=== PATIENT | female | born 1970 | race Caucasian/White ===

== ENCOUNTER 2021-03-22 17:14 | Inpatient (IN) | payer OTHER ==
[~2021-03-22] VITALS: Ht 177.8 cm; Wt 81.6 kg
[~2021-03-22 17:14] MED LIST: HCTZ OR; HYDROCODON-ACE1 EAC5 OR; LISINOPRIL20 MG OR
[2021-03-22 18:30] VITALS: BP 128/70
[2021-03-22 23:16] VITALS: BP 129/56
[2021-03-23] VITALS (13 sets, daily range): BP systolic 93–122; BP diastolic 52–65
--- NOTE | 2021-03-23 04:20 | NUR ---
ASSUMED PT CARE THIS PM. PT IS ALERT AND ORIENTED X4. PT HAD A TEMP WHICH WAS MANAGED BY TYLENOL. PT DID NOT C/O OF N/V OR PAIN. HOME MEDS WERE TAKEN TO PHARMACY. MEDS WERE GIVEN PER EMAR ORDERS. PT INFORMED ABOUT NPO ORDERS AND PT VERBALIZED UNDERSTANDING. PT DID NOT VERBALIZE ANY CONCERNS. FALL PRECAUTIONS IN PLACE. WILL CONTINUE TO MONITOR.
[2021-03-23 05:42] LABS: HEMATOCRIT 34.3 % (37.0-47.0); HEMOGLOBIN 11.8 gm/dL (12.0-15.0); MCH 28.8 pg (26.0-34.0); MCHC 34.5 g/dL (28.0-37.0); MCV 83.3 fL (80.0-100.0); RBC 4.12 mil/uL (4.20-5.00); RDW 13.8 % (10.5-14.5); WBC 13.7 thou/uL (4.0-11.0)
[2021-03-23 05:59] LABS: CALCIUM 7.4 mg/dL (8.5-10.1); CREATININE 1.3 mg/dL (0.6-1.0); POTASSIUM 3.2 mmol/L (3.5-5.1)
--- NOTE | 2021-03-23 10:39 | NUR ---
Chart review. Dx kidney stone, uti. Going to have stone removed possible today. Discussed during los with hospitalist. Noted she lives at home with spouse. No anticipated needs at discharge, will cont following as needed for dc needs.
--- NOTE | 2021-03-23 15:40 | NUR ---
Pt A & O x4. Pt VS stable. Pt had stent placed this shift. Pt received medications as ordered. Pt also received PRN medications as requested by pt. Pt is independent with cares and ADLs and is up ad mitch. Pt worked with PT/OT this shift. Pt is room air. Pt is able to make needs known.
--- NOTE | 2021-03-24 01:52 | NUR ---
ASSUMED PT CARE THIS PM. PT IS ALERT AND ORIENTED X4. SPOUSE IS AT BEDSIDE. PT DID NOT C/O PAIN AND DID NOT EXPRESS ANY CONCERNS WITH URINATION. PT IS UP AD GARETT. VS ARE WITHIN NORMAL RANGE. MEDS WERE GIVEN PER EMAR. PT TOLERATING RA. FALL PRECAUTIONS IN PLACE. WILL CONTINUE TO MONITOR.
[2021-03-24 07:27] VITALS: BP 115/65
--- NOTE | 2021-03-24 18:35 | NUR ---
ASSUMED PT CARE THIS AM. PT A&OX4, ABLE TO MAKE NEEDS KNOWN. PATIENT HAS NO COMPLAINTS OF PAIN, NUMBNESS, OR TINGLING. PATIENT IS UP AD GARETT IN ROOM. PATIENT REMAINS CONTINENT, AND COMPLAINS OF BURNING WITH URINATION. CALL LIGHT WITHIN REACH.
[2021-03-24 20:01] VITALS: BP 135/75
[2021-03-24 20:03] LABS: URINE BILIRUBIN NEGATIVE (Negative); URINE BLOOD 3+ (Negative); URINE COLOR YELLOW; URINE GLUCOSE-RANDOM* TRACE (Negative); URINE KETONES NEGATIVE (Negative); URINE PROTEIN (DIPSTICK) 2+ (Negative); URINE SPECIFIC GRAVITY 1.025 (1.005-1.035)
[2021-03-24 20:05] LABS: URINE CLARITY HAZY; URINE LEUKOCYTES-REFLEX 1+ (Negative); URINE NITRITE-REFLEX POSITIVE (Negative)
[2021-03-24 20:14] LABS: SQUAMOUS 4-10 Moderate /LPF (0-3)
[2021-03-24 20:15] LABS: BACTERIA-REFLEX >30 Many /HPF (None Seen); URINE RBC >20 Many /HPF (NONE SEEN)
[2021-03-24 20:16] LABS: CASTS None Seen /LPF (None Seen); CRYSTALS None Seen /LPF (None Seen)
--- NOTE | 2021-03-25 02:10 | NUR ---
PT CARE ASSUMED WITH PT IN CHAIR .PT IS A/O X4.PT IS UP AD GARETT AND EDUCATED TO CALL FOR HELP.PT C/O GENERALIZED DISCOMFORT AND XANAX ADMINISTERED.PT IS ON ROOM AIR.IV ACCESS ON LT HAND WITH NS AT 100CC/HR.PT DENIED N/V. PT IS ACCUCHECK ACHS WITH LOW SSI.WILL CONTINUE TO MONITOR PER POC
[2021-03-25 04:02] VITALS: BP 140/83
[2021-03-25 06:13] LABS: HEMATOCRIT 30.6 % (37.0-47.0); HEMOGLOBIN 10.4 gm/dL (12.0-15.0); MCH 28.8 pg (26.0-34.0); MCHC 33.9 g/dL (28.0-37.0); MCV 84.9 fL (80.0-100.0); RBC 3.6 mil/uL (4.20-5.00); RDW 14.1 % (10.5-14.5); WBC 9.3 thou/uL (4.0-11.0)
[2021-03-25 06:36] LABS: CALCIUM 7.7 mg/dL (8.5-10.1); CREATININE 0.9 mg/dL (0.6-1.0); MAGNESIUM 1.8 mg/dL (1.8-2.4)
[2021-03-25 07:33] VITALS: BP 138/93
[2021-03-25] MEDS ORDERED: CEFUROXIME500 MG PO (13:34)
[2021-03-25] MEDS ORDERED: PEPCID20 MG PO (13:34)
[2021-03-25] MEDS ORDERED: ACETAMINOPHEN325 M1 PO (13:34)
[2021-03-25] MEDS ORDERED: PHENAZOPYRIDIN100 M1 PO (13:34)
[2021-03-25] MEDS ORDERED: NORCO5 PO (13:34)
--- NOTE | 2021-03-25 14:59 | NUR ---
Pt A & O x4. Pt VS stable. pt received medications as ordered. pt received discharge orders. pt discharge instructions reviewed with pt and pt verbalizes understanding and signed instructions. PT ambulated to front enterence with personal belongings and discharge instructions and left hospital in private vehicle.
== END 2021-03-25 15:42 | disposition home or self-care (01) | DRG 853 ==
LOC: 4W 17:14
PROVIDERS: Nurse Practitioner Family; ADMIT Internal Medicine; ATTEND Internal Medicine
PROC: BT1F1ZZ Fluoroscopy of Left Kidney, Ureter and Bladder using Low Osmolar Contrast (ICD-10-PCS; principal; 2021-03-23)
PROC: 0T778DZ Dilation of Left Ureter with Intraluminal Device, Via Natural or Artificial Opening Endoscopic (ICD-10-PCS; principal; 2021-03-23)
DX: A41.9 Sepsis, unspecified organism (principal); N17.0 Acute kidney failure with tubular necrosis; N13.6 Pyonephrosis; E11.9 Type 2 diabetes mellitus without complications; Z20.822 Contact with and (suspected) exposure to COVID-19; G47.00 Insomnia, unspecified; I10 Essential (primary) hypertension; F41.9 Anxiety disorder, unspecified; F32.9 Major depressive disorder, single episode, unspecified; Z90.711 Acquired absence of uterus with remaining cervical stump; Z88.6 Allergy status to analgesic agent; Z88.8 Allergy status to other drugs, medicaments and biological substances; Z87.442 Personal history of urinary calculi
CPT/HCPCS: 10047; 50010; 50101; 51767; 56674; 56815; 57160; 58565; 58732; 62110; 62900; 70005